=== PATIENT | male | born 1960 | race Caucasian/White ===

== ENCOUNTER 2021-02-18 09:56 | Outpatient (REF) | payer OTHER, SELFPAY ==
[2021-02-18 10:43] LABS: MANUAL DIFF FLAG NO
[2021-02-18 10:52] LABS: Basophils Absolute Auto 0.1 X10*3/uL (0.0-0.2); Basophils Percent Auto 0.9 % (0-2); Eosinophils Absolute Auto 0.1 X10*3/uL (0.0-0.4); Eosinophils Percent Auto 2.5 % (0-4); Hematocrit 43.5 % (42-52); Hemoglobin 14.6 g/dl (14.0-18.0); Imm Gran Abs Auto 0.01 X10*3/uL (0.00-0.03); Imm Gran Pct Auto 0.2 % (0.0-0.4); Lymphocytes Absolute Auto 1.2 X10*3/uL (1.2-4.9); Lymphocytes Percent Auto 21.3 % (20-40); Mean Corpuscular HGB Conc 33.6 g/dl (31.0-36.0); Mean Corpuscular Hemoglobin 31.1 pg (27.0-33.0); Mean Corpuscular Volume 92.8 fL (80-98); Mean Platelet Volume 10.7 fL (9.4-12.4); Monocytes Absolute Auto 0.4 X10*3/uL (0.1-1.2); Monocytes Percent Auto 7.5 % (2-11); Neutrophils Absolute Auto 3.7 X10*3/uL (2.0-8.3); Neutrophils Percent Auto 67.6 % (45-73); Platelet Count 149 X10*3/uL (160-400); Red Blood Count 4.69 X10*6/uL (4.60-5.80); Red Cell Distribution Width 11.8 % (11.0-16.0); White Blood Count 5.5 X10*3/uL (4.8-10.8)
[2021-02-18 11:09] LABS: Alanine Aminotransferase 8 U/L (0-40); Albumin Level 4.2 g/dL (3.5-5.0); Alkaline Phosphatase 89 U/L (39-117); Anion Gap 13 (12-20); Aspartate Amino Transferase 13 U/L (5-37); Bilirubin Total 1.1 mg/dL (0.0-1.0); Blood Urea Nitrogen 13 mg/dL (9-16); Calcium 9.2 mg/dL (8.4-10.2); Carbon Dioxide 26 mmol/L (22-29); Chloride 107 mmol/L (96-108); Cholesterol 133 mg/dL; Estimated Glomerular Filt Rate > 60; Glucose Random 94 mg/dL (60-115); HDL Cholesterol 53 mg/dL; LDL Cholesterol Calculated 69 mg/dl; Potassium 4.7 mmol/L (3.3-5.1); Sodium 141 mmol/L (135-145); Total Protein 6.4 g/dL (6.5-8.0); Triglycerides 59 mg/dL
[2021-02-18 11:32] LABS: Prostate Specific Antigen 0.49 ng/mL (<0.05-4.0)
[2021-02-18 11:55] LABS: Glucose Urine UA NEG (NEG); Leukocyte Esterase Urine NEG (NEG); Nitrite Urine NEG (NEG); PH 6.5 (5.0-8.0); Specific Gravity - Urine 1.015 (1.005-1.025); Urine Blood NEG (NEG); Urine Ketones NEG (NEG); Urine Protein NEG (NEG-TRACE)
[2021-02-18 11:57] LABS: Appearance Urine CLEAR; Color Urine YELLOW
== END 2021-02-18 09:57 | disposition home or self-care (01) ==
LOC: HO.LAB 09:56
PROVIDERS: PCP Internal Medicine; Visit Provider Internal Medicine
DX: Z12.5 Encounter for screening for malignant neoplasm of prostate (principal); I25.10 Atherosclerotic heart disease of native coronary artery without angina pectoris; E78.00 Pure hypercholesterolemia, unspecified; N18.9 Chronic kidney disease, unspecified
CPT/HCPCS: 36415; 80053; 80061; 81003; 84153; 85025

== ENCOUNTER 2022-04-16 09:53 | Outpatient (REF) | payer OTHER, SELFPAY ==
[2022-04-16 10:16] LABS: MANUAL DIFF FLAG NO
[2022-04-16 10:46] LABS: Basophils Absolute Auto 0.1 X10*3/uL (0.0-0.2); Basophils Percent Auto 0.9 % (0-2); Eosinophils Absolute Auto 0.3 X10*3/uL (0.0-0.4); Eosinophils Percent Auto 4.6 % (0-4); Hematocrit 44.5 % (42.0-52.0); Hemoglobin 15.2 g/dl (14.0-18.0); Imm Gran Abs Auto 0.02 X10*3/uL (0.00-0.03); Imm Gran Pct Auto 0.3 % (0.0-0.4); Lymphocytes Absolute Auto 1.2 X10*3/uL (1.2-4.9); Lymphocytes Percent Auto 18.2 % (20-40); Mean Corpuscular HGB Conc 34.2 g/dl (31.0-36.0); Mean Corpuscular Hemoglobin 30.8 pg (27.0-33.0); Mean Corpuscular Volume 90.3 fL (80.0-98.0); Mean Platelet Volume 10.3 fL (9.4-12.4); Monocytes Absolute Auto 0.5 X10*3/uL (0.1-1.2); Neutrophils Absolute Auto 4.5 x10*3/uL (2.0-8.3); Platelet Count 163 X10*3/uL (160-400); Red Blood Count 4.93 X10*6/uL (4.60-5.80); Red Cell Distribution Width 11.9 % (11.0-16.0); White Blood Count 6.5 X10*3/uL (4.8-10.8)
[2022-04-16 11:22] LABS: Alanine Aminotransferase 11 U/L (0-40); Albumin Level 4.3 g/dL (3.5-5.0); Alkaline Phosphatase 86 U/L (39-117); Anion Gap 14 (12-20); Aspartate Amino Transferase 13 U/L (5-37); Bilirubin Total 1.2 mg/dL (0.0-1.0); Blood Urea Nitrogen 12 mg/dL (9-16); Calcium 9.3 mg/dL (8.4-10.2); Carbon Dioxide 25 mmol/L (22-29); Chloride 104 mmol/L (96-108); Cholesterol 139 mg/dL; Estimated Glomerular Filt Rate 58; Glucose Fasting 96 mg/dL (60-99); HDL Cholesterol 54 mg/dL; LDL Cholesterol Calculated 73 mg/dl; Potassium 4.1 mmol/L (3.3-5.1); Sodium 139 mmol/L (135-145); Total Protein 6.6 g/dL (6.5-8.0); Triglycerides 63 mg/dL
[2022-04-16 11:32] LABS: Prostate Specific Antigen Scr 0.48 ng/mL (<0.05-4.0)
== END 2022-04-16 09:54 | disposition home or self-care (01) ==
LOC: HO.LAB 09:53
PROVIDERS: PCP Internal Medicine; Visit Provider Internal Medicine
DX: Z12.5 Encounter for screening for malignant neoplasm of prostate (principal); I25.10 Atherosclerotic heart disease of native coronary artery without angina pectoris; I12.9 Hypertensive chronic kidney disease with stage 1 through stage 4 chronic kidney disease, or unspecified chronic kidney disease; N18.9 Chronic kidney disease, unspecified
CPT/HCPCS: 36415; 80053; 80061; 84153; 85025

== ENCOUNTER 2022-07-24 15:59 | Outpatient (REF) | payer OTHER, SELFPAY ==
[2022-07-24 16:48] LABS: Anion Gap 12 (12-20); Blood Urea Nitrogen 13 mg/dL (9-16); Calcium 9.3 mg/dL (8.4-10.2); Carbon Dioxide 28 mmol/L (22-29); Chloride 106 mmol/L (96-108); Estimated Glomerular Filt Rate > 60; Glucose Random 91 mg/dL (60-115); Potassium 4.3 mmol/L (3.3-5.1); Sodium 142 mmol/L (135-145)
== END 2022-07-24 16:00 | disposition home or self-care (01) ==
LOC: HO.LAB 15:59
PROVIDERS: Visit Provider Internal Medicine
DX: I12.9 Hypertensive chronic kidney disease with stage 1 through stage 4 chronic kidney disease, or unspecified chronic kidney disease (principal); N18.9 Chronic kidney disease, unspecified; I25.10 Atherosclerotic heart disease of native coronary artery without angina pectoris
CPT/HCPCS: 36415; 80048

== ENCOUNTER 2023-02-19 06:50 | Outpatient (REF) | payer OTHER, SELFPAY ==
[2023-02-19 07:00] LABS: MANUAL DIFF FLAG NO
[2023-02-19 07:09] LABS: Basophils Absolute Auto 0.1 X10*3/uL (0.0-0.2); Basophils Percent Auto 0.8 % (0-2); Eosinophils Absolute Auto 0.2 X10*3/uL (0.0-0.4); Eosinophils Percent Auto 3.1 % (0-4); Hematocrit 46.6 % (42.0-52.0); Hemoglobin 15.9 g/dl (14.0-18.0); Imm Gran Abs Auto 0.02 X10*3/uL (0.00-0.03); Imm Gran Pct Auto 0.3 % (0.0-0.4); Lymphocytes Absolute Auto 1.7 X10*3/uL (1.2-4.9); Lymphocytes Percent Auto 22.5 % (20-40); Mean Corpuscular HGB Conc 34.1 g/dl (31.0-36.0); Mean Corpuscular Hemoglobin 31.3 pg (27.0-33.0); Mean Corpuscular Volume 91.7 fL (80.0-98.0); Monocytes Absolute Auto 0.5 X10*3/uL (0.1-1.2); Monocytes Percent Auto 7.3 % (2-11); Neutrophils Absolute Auto 4.9 x10*3/uL (2.0-8.3); Platelet Count 171 X10*3/uL (160-400); Red Blood Count 5.08 X10*6/uL (4.60-5.80); Red Cell Distribution Width 11.9 % (11.0-16.0); White Blood Count 7.4 X10*3/uL (4.8-10.8)
[2023-02-19 08:10] LABS: Appearance Urine Clear; Color Urine Yellow; Glucose Urine UA Negative (Negative); Leukocyte Esterase Urine Negative (Negative); Nitrite Urine Negative (Negative); PH 5.5 (5.0-9.0); UMIC TRIGGER UA YES; Urine Blood Negative (Negative); Urine Ketones 15 mg/dL (Negative); Urine Protein 30 (1+) mg/dL (Neg-Trace)
[2023-02-19 08:17] LABS: Bacteria Urine None Seen (None Seen); RBC Urine 0-2 /HPF (0-2); Squamous Epithelial Cell Urine 0-2 /HPF (0-2); WBC Urine 0-5 /HPF (0-5)
[2023-02-19 11:19] LABS: Alanine Aminotransferase 12 U/L (0-40); Albumin Level 4.3 g/dL (3.5-5.0); Alkaline Phosphatase 96 U/L (39-117); Anion Gap 14 (12-20); Aspartate Amino Transferase 14 U/L (5-37); Bilirubin Total 1.7 mg/dL (0.0-1.0); Blood Urea Nitrogen 11 mg/dL (9-16); Calcium 9.6 mg/dL (8.4-10.2); Carbon Dioxide 26 mmol/L (22-29); Chloride 107 mmol/L (96-108); Cholesterol 136 mg/dL; Estimated Glomerular Filt Rate > 60; Glucose Fasting 103 mg/dL (60-99); HDL Cholesterol 52 mg/dL; LDL Cholesterol Calculated 72 mg/dl; Potassium 4.4 mmol/L (3.3-5.1); Sodium 143 mmol/L (135-145); Triglycerides 62 mg/dL
[2023-02-19 11:29] LABS: Prostate Specific Antigen 0.67 ng/mL (<0.05-4.0)
== END 2023-02-19 06:51 | disposition home or self-care (01) ==
LOC: HO.LAB 06:50
PROVIDERS: Visit Provider Internal Medicine
DX: Z00.00 Encounter for general adult medical examination without abnormal findings (principal)
CPT/HCPCS: 36415; 80053; 80061; 81001; 84153; 85025

== ENCOUNTER 2023-12-30 14:05 | Outpatient (REF) | payer OTHER, SELFPAY ==
[2023-12-30 14:19] LABS: MANUAL DIFF FLAG NO
[2023-12-30 15:17] LABS: Basophils Absolute Auto 0.1 X10*3/uL (0.0-0.2); Basophils Percent Auto 0.8 % (0-2); Eosinophils Absolute Auto 0.1 X10*3/uL (0.0-0.4); Hemoglobin 15.5 g/dl (14.0-18.0); Imm Gran Abs Auto 0.01 X10*3/uL (0.00-0.03); Imm Gran Pct Auto 0.2 % (0.0-0.4); Lymphocytes Absolute Auto 1.2 X10*3/uL (1.2-4.9); Lymphocytes Percent Auto 20.1 % (20-40); Mean Corpuscular HGB Conc 34.4 g/dl (31.0-36.0); Mean Corpuscular Hemoglobin 31.1 pg (27.0-33.0); Mean Corpuscular Volume 90.4 fL (80.0-98.0); Mean Platelet Volume 11.3 fL (9.4-12.4); Monocytes Absolute Auto 0.5 X10*3/uL (0.1-1.2); Monocytes Percent Auto 8.7 % (2-11); Neutrophils Absolute Auto 4.2 x10*3/uL (2.0-8.3); Neutrophils Percent Auto 69.2 % (45-73); Platelet Count 171 X10*3/uL (160-400); Red Blood Count 4.98 X10*6/uL (4.60-5.80); Red Cell Distribution Width 12.2 % (11.0-16.0); White Blood Count 6.1 X10*3/uL (4.8-10.8)
[2023-12-30 17:17] LABS: Alanine Aminotransferase 18 U/L (0-40); Albumin Level 4.3 g/dL (3.5-5.0); Alkaline Phosphatase 75 U/L (39-117); Anion Gap 11 (12-20); Aspartate Amino Transferase 14 U/L (5-37); Bilirubin Total 1.2 mg/dL (0.0-1.0); Blood Urea Nitrogen 15 mg/dL (9-16); Carbon Dioxide 27 mmol/L (22-29); Chloride 106 mmol/L (96-108); Cholesterol 133 mg/dL (<200); Estimated Glomerular Filt Rate 44; Glucose Random 94 mg/dL (60-115); Sodium 140 mmol/L (135-145); Total Protein 6.9 g/dL (6.5-8.0)
[2023-12-30 17:18] LABS: Thyroid Stimulating Hormone 0.73 uIU/mL (0.32-4.0)
== END 2023-12-30 14:06 | disposition home or self-care (01) ==
LOC: HO.LAB 14:05
PROVIDERS: PCP Internal Medicine; Visit Provider Internal Medicine
DX: I48.91 Unspecified atrial fibrillation (principal); I25.10 Atherosclerotic heart disease of native coronary artery without angina pectoris; I10 Essential (primary) hypertension; E78.00 Pure hypercholesterolemia, unspecified
CPT/HCPCS: 36415; 80053; 82465; 84439; 84443; 85025

== ENCOUNTER 2024-01-21 12:37 | Outpatient (AMB) | payer OTHER, SELFPAY ==
--- NOTE | 2024-01-21 12:45 | A.OFFVIS_ITS ---
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 He states that he is seen Dr. Javed in the past but not recently. He had atrial fibrillation detected by his own PCP in the last few weeks. Otherwise, has a history of coronary artery disease. According to a note brought by him, underwent PCI to mid LAD as well as diagonal in 2014, at [place], [place]. Apparently, patient was doing some housework and then had chest pain leading to diagnosis of what appears to be STEMI followed by PCI. Otherwise, he is describing some cough but no clear-cut anginal-type symptoms. Some palpitations when he is lying down flat. [facility] Medical History (Updated 01/21/24 @ 13:07 by Orion Galvez MD) Essential hypertension Atherosclerotic cardiovascular disease Surgical History (Updated 01/21/24 @ 12:53 by Belgica Wade CMA) Stented coronary artery Family History (Updated 01/21/24 @ 13:10 by Orion Galvez MD) Mother CHF (congestive heart failure) Social History (Updated 01/21/24 @ 12:55 by Belgica Wade CMA) Household Members: None Alcohol intake: never Patient Tobacco Use Status: Never used Tobacco Review of Systems Const Denies chills, Denies fever(s), Denies frequent falls, Denies weakness, Denies weight gain and Denies weight loss ENT Denies dizziness Card Denies chest pain, Denies leg edema, Denies lightheadedness, Denies palpitations, Denies dyspnea, Denies dyspnea on exertion and Denies orthopnea Resp Denies cough, Denies dyspnea and Denies dyspnea on exertion GI Denies bloating and Denies change in bowel habits Musc Denies muscle weakness, Denies numbness and Denies tingling Neuro Denies dizziness, Denies frequent falls, Denies numbness, Denies tingling and D enies weakness Endo Denies palpitations Physical Exam Vital Signs: Last Vital Signs Pulse 106 H 01/21/24 12:47 BP 160/90 H 01/21/24 12:47 BMI result Body Mass Index 22.4 Const General: comfortable and no acute distress Orientation/consciousness: patient oriented x3 HEENT Other: Unremarkable Head: Yes normal to inspection Neck Neck: Yes normal visual inspection Chest Chest palpation & inspection: normal inspection of the chest Resp Auscultation: clear to auscultation bilaterally Cardio Palpation: normal PMI Heart sounds: S1 normal heart sound present, S2 normal heart sound present, no gallops, no murmurs and no rubs GI Palpation (GI): Soft to palpation Back/Spine/Pelvis Other: unremarkable Skin General skin exam: no rashes or lesions noted Neuro General: patient oriented x3 Extrem General: Yes normal to inspection Psych Mental Status: mental status grossly normal Office Procedures EKG Details: EKG with atrial fibrillation at a rate of 106/Min; possible LVH. [id number], Complete Assessment & Plan Assessment & Plan (1) New onset atrial fibrillation: Code(s): I48.91 - Unspecified atrial fibrillation Category: Medical Plan: We discussed about going up on the Coreg dose but he is very reluctant. His heart rate is slightly high. Probably can convince him in the next visit. Obtain echocardiogram/Holter. May need cardioversion but I am not clear how amenable he will be. Continue Eliquis. (2) Atherosclerotic cardiovascular disease: Code(s): I25.10 - Atherosclerotic heart disease of [place] coronary artery without angina pectoris Category: Medical Plan: History of acute [place]/PCI as described above-stents to mid LAD and diagonal 2014. Clinically, no angina. Continue statins. Continue beta-blockers. Echocardiogram as above. (3) Essential hypertension: Code(s): I10 - Essential (primary) hypertension Category: Medical Plan: Blood pressure seems high but he states he is taken meds as yet. Home blood pressure diary also reviewed and that shows high readings. Advised going up on the blood pressure medications but he states that will make him too tired and that he cannot function normally. Will need to reassess in due course. Orders: Orders CA echo transthoracic complete Today I25.10 - Atherosclerotic heart disease of [place] coronary artery without angina pectoris, I48.91 - Unspecified atrial fibrillation ECG 3 day holter monitor Today I48.91 - Unspecified atrial fibrillation, R00.2 - Palpitations Coding Level of Care Code New Pt Level 4 (79439) Diagnoses New onset atrial fibrillation I48.91 Atherosclerotic cardiovascular disease I25.10 Essential hypertension I10 CPT Codes EKG - CPT: 77212-[id number], Complete ([id number])
[2024-01-21 12:47] VITALS: BP 160/90; PULSE 106; BMI 22.4
== END 2024-01-21 13:25 | disposition home or self-care (01) ==
PROVIDERS: PCP Internal Medicine; Visit Provider Internal Medicine
DX: I48.91 Unspecified atrial fibrillation (principal); I25.10 Atherosclerotic heart disease of native coronary artery without angina pectoris; I10 Essential (primary) hypertension
CPT/HCPCS: 93010; 99204

== ENCOUNTER → 2024-01-21 12:37 | Outpatient (BNVA) | payer OTHER, SELFPAY | PROVIDERS: PCP Internal Medicine; Visit Provider Internal Medicine | DX: I48.91 Unspecified atrial fibrillation (principal); I25.10 Atherosclerotic heart disease of native coronary artery without angina pectoris; I10 Essential (primary) hypertension; I44.5 Left posterior fascicular block; R94.31 Abnormal electrocardiogram [ECG] [EKG] | CPT/HCPCS: 93005; 99202 ==

== ENCOUNTER → 2024-02-12 12:45 | Outpatient (REF) | payer OTHER, SELFPAY ==
--- NOTE | 2024-02-12 12:50 | HM_ITS ---
Conclusion: 1. Patient was monitored for total period of 3 days 2. Baseline was atrial fibrillation with average heart of 94 beats per minute with borderline rate control 3. No significant pauses noted 4. Occasional PVCs noted 5. Patient reported 3 events of palpitations correlated with underlying atrial fibrillation MTDD
--- NOTE | 2024-02-12 12:50 | CA_ITS ---
Transthoracic Echocardiogram Patient (Last, First, Middle): Jose You K Gender: Male Date of : 1960 Age: 63 Procedure Date: 02/12/2024 Procedure Type: Transthoracic Echocardiogram Location: OP Height: 180.34 cm Weight: 70.31 kg BSA: 1.89 m2 Heart Rate: bpm BP: 148 / 100 mmHg Color Print Inspector: TO Referring MD: Orion Galvez MD Channeling Machine Operator: Rory Gustafson MD Symptoms: I25.10 - Atherosclerotic heart disease of [place] coronary artery without... Study Quality: Adequate ECG Rhythm: Atrial Fibrillation Conclusions: - 1. Moderately reduced LV ejection fraction of 35-40% 2. Mild biatrial enlargement 3. Mild aortic and mitral regurgitation 4. No gross pericardial effusion Findings Left Ventricle Normal left ventricular cavity size. There is mildly increased left ventricular wall thickness. The left ventricular systolic function is moderately decreased. The visually estimated ejection fraction is between 35 40%. There is moderate global hypokinesis. Diastolic function is indeterminate on the basis of available data. Right Ventricle Normal right ventricular cavity size. There is borderline right ventricular systolic function. Atria Mild biatrial enlargement. There is no evidence of interatrial shunt. Aortic Valve Normal aortic valve structure and function. There is no aortic valve stenosis. There is mild aortic valve regurgitation. Mitral Valve Normal mitral valve structure and function. There is mild mitral valve regurgitation. There is no mitral valve stenosis. Pulmonic Valve The pulmonic valve is likely normal. Tricuspid Valve Normal tricuspid valve structure. Tricuspid regurgitation envelope is inadequate for calculation of right ventricular systolic pressure. Normal right atrial pressure. Great Vessels All visible segments of the aorta are normal in size. The pulmonary artery was not well visualized. There is no dilatation of the ascending aorta measuring 3.20 cm. Venous The inferior vena cava is normal in size and collapses greater than 50% with inspiration. Pericardium/Pleural There is no evidence of pericardial effusion. Prior Study Comparison no previous study in the last 5 years for comparison Measurements 2D Linear Measurements IVSd: 1.12 0.6-0.9/0.6-1.0 cm LVIDd: 5.00 3.9-5.3/4.2-5.9 cm LVIDd Index: 2.65 2.4-3.2/2.2-3.1 cm/m2 LVIDs: 3.98 2.0-3.6 cm LVPWd: 1.19 0.7-1.1 cm LA Diam: 3.50 2.7-3.8/3.0-4.0 cm LAIDs Index: 1.85 1.5-2.3 cm/m2 LV Mass: 276.24 67-162/88-224 g LV Mass Index: 146.16 43-95/49-115 g/m2 LVOT Diam: 2.20 3.0+(-)1.3 cm 2D Systolic Function EF 4C: 40.30 >55% EF 2C: 40.60 >55% EF BiP: 40.00 >55% Mitral Valve MV Pk E: 0.63 MV Decel Time: 196.00 E'Lateral: 8.01 E'Medial: 8.09 E/E' Med: 7.80 E/E' Lat: 7.90 PHT: 58.00 MVA PHT: 3.79 Decel Peach: 3.24 Aortic Valve AoV Pk Slava: 0.85 AoV Pk Grad: 3.00 LVOT LVOT Pk Slava: 0.78 LVOT Mn Slava: 0.50 LVOT VTI: 0.13 LVOT Pk Grad: 2.00 LVOT Mn Grad: 1.00 LVOT Diam: 2.20 LVOT Area: 3.80 Diastolic Function MV Pk E: 0.63 E'Medial: 8.09 E/E' Med: 7.80 E' Laterial: 8.01 E/E' Lat: 7.90 Right Ventricle TAPSE (mm): 16.30 TVS' Slava: 10.10 Tricuspid Valve RA Press: 3.00 Great Vessels Aorta Sinus of Valsalva: 3.35 2.0-3.[address] [place]: 2.53 1.7-3.4 cm Ao Asc: 3.20 2.1-3.4 cm Updated in Other Vendor System with Status of Final Rory Gustafson MD electronically signed on 02/14/2024 1:04:28 PM with status of Final
== END ==
LOC: HO.CARD 12:45
PROVIDERS: PCP Internal Medicine; Visit Provider Internal Medicine
DX: I48.91 Unspecified atrial fibrillation (principal); R00.2 Palpitations; I25.10 Atherosclerotic heart disease of native coronary artery without angina pectoris
CPT/HCPCS: 93242; 93306

== ENCOUNTER → 2024-02-12 12:50 | Outpatient (BNV) | payer OTHER, SELFPAY | PROVIDERS: PCP Internal Medicine; Visit Provider Internal Medicine Cardiovascular Disease | DX: I48.91 Unspecified atrial fibrillation (principal) | CPT/HCPCS: 93244; 93306 ==

== ENCOUNTER 2024-02-22 12:48 | Outpatient (AMB) | payer OTHER, SELFPAY ==
[2024-02-22 13:05] VITALS: BP 130/68; PULSE 74; BMI 21.5
--- NOTE | 2024-02-22 13:05 | A.OFFVIS_ITS ---
Vital Signs 02/22/24 13:05 Height 5 ft 11 in Weight 154 lb 5.177 oz BMI 21.5 BP 130/68 Blood Pressure Location Lt brachial Position Sitting Pulse 74 Pulse Source Pulse Oximeter Intake Visit Reasons: 6 wk fu after echo/holter Allergies No Known Allergies Allergy (Verified 01/21/24 12:48) Medication List - Last Reconciled 02/22/24 by Orion Galvez MD apixaban (Eliquis) 5 mg PO BID atorvastatin 40 mg PO DAILY carvedilol 12.5 mg PO BID irbesartan 300 mg PO DAILY HPI Comments Details: Jose returns for follow-up. Recently seen in consultation regarding atrial fibrillation. He has seen Dr. Javed in the past but not recently. He had atrial fibrillation detected by his own PCP in the last few weeks. Otherwise, has a history of coronary artery disease. According to a note brought by him, underwent PCI to mid LAD as well as diagonal in 2014, at [place], [place]. Apparently, patient was doing some housework and then had chest pain leading to diagnosis of what appears to be STEMI followed by PCI. Otherwise, he is describing some cough but no clear-cut anginal-type symptoms. Some palpitations when he is lying down flat. Since last visit, he has undergone an echocardiogram as well as a Holter monitor. [facility] Medical History (Updated 02/22/24 @ 13:37 by Orion Galvez MD) Essential hypertension Atherosclerotic cardiovascular disease Surgical History (Updated 01/21/24 @ 12:53 by Belgica Wade CMA) Stented coronary artery Family History (Updated 01/21/24 @ 13:10 by Orion Galvez MD) Mother CHF (congestive heart failure) Social History (Updated 01/21/24 @ 12:55 by Belgica Wade CMA) Household Members: None Alcohol intake: never Patient Tobacco Use Status: Never used Tobacco Review of Systems Const Denies weakness ENT Denies dizziness Card Denies chest pain, Denies chest pain with activity, Denies syncope, Denies rapid heart rate, Denies pedal edema, Denies edema, Denies leg edema, Denies lightheadedness, Denies palpitations, Denies dyspnea, Denies dyspnea on exertion and Denies orthopnea Resp Denies cough, Denies dyspnea and Denies dyspnea on exertion GI Denies hematochezia and Denies change in stool character Musc Denies abnormal gait, Denies muscle cramps, Denies muscle weakness, Denies numbness, Denies radiating pain into limb and Denies tingling Neuro Denies abnormal gait, Denies dizziness, Denies syncope, Denies numbness, Denies tingling and Denies weakness Endo Denies palpitations Physical Exam Vital Signs: Last Vital Signs Pulse 74 02/22/24 13:05 BP 130/68 02/22/24 13:05 BMI result Body Mass Index 21.5 Const General: comfortable and no acute distress Orientation/consciousness: patient oriented x3 HEENT Other: Unremarkable Head: Yes normal to inspection Neck Neck: Yes normal visual inspection Chest Chest palpation & inspection: normal inspection of the chest Resp Auscultation: clear to auscultation bilaterally Cardio Palpation: normal PMI Heart sounds: S1 normal heart sound present, S2 normal heart sound present, no gallops, no murmurs and no rubs GI Palpation (GI): Soft to palpation Back/Spine/Pelvis Other: unremarkable Skin General skin exam: no rashes or lesions noted Neuro General: patient oriented x3 Extrem General: Yes normal to inspection Psych Mental Status: mental status grossly normal Assessment & Plan Assessment & Plan (1) New onset atrial fibrillation: Code(s): I48.91 - Unspecified atrial fibrillation Category: Medical Plan: During the recent clinic visit, EKG showed atrial fibrillation at a rate of 106/Min. In the Holter as well, ventricular rates slightly high but he states he did not take Coreg during the time of Holter. We discussed increasing Coreg dosing but he prefers no changes. Also discussed about cardioversion as the next step but he does not want that either. He states he does not like to go under anesthesia for cardioversion, but explained to him that we cannot do the procedure while he is awake. He states he would like to go for a 2nd opinion arranged through his own PCP. He would like to discuss with his PCP about that. Otherwise, remain on Eliquis. (2) Atherosclerotic cardiovascular disease: Code(s): I25.10 - Atherosclerotic heart disease of [place] coronary artery without angina pectoris Category: Medical Plan: History of acute CT/PCI as described above-stents to mid LAD and diagonal 2015. Clinically, no angina. Continue beta-blockers and statins. (3) Essential hypertension: Code(s): I10 - Essential (primary) hypertension Category: Medical Plan: During last visit, blood pressure was 160/90 mm Hg. Today, it seems better. Home blood pressure diary that had shown high readings. We discussed about going up on blood pressure meds but again he did not want to do that as he felt that could make him too tired. (4) Cardiomyopathy: Code(s): I42.9 - Cardiomyopathy, unspecified Category: Medical Plan: Echocardiogram with cardiomyopathy, LVEF of 35-40%. Could be related to underlying hypertension and atrial fibrillation. However, he is not really agreeable to management suggested as above for either condition. He would like to just seek a 2nd opinion through his own PCP. Plan Patient will contact us after discussing with his PCP regarding 2nd opinion. Coding Level of Care Code Est Pt Level 4 (21308) Diagnoses New onset atrial fibrillation I48.91 Atherosclerotic cardiovascular disease I25.10 Essential hypertension I10 Cardiomyopathy I42.9
== END 2024-02-22 14:28 | disposition home or self-care (01) ==
PROVIDERS: PCP Internal Medicine; Visit Provider Internal Medicine
DX: I48.91 Unspecified atrial fibrillation (principal); I25.10 Atherosclerotic heart disease of native coronary artery without angina pectoris; I10 Essential (primary) hypertension; I42.9 Cardiomyopathy, unspecified
CPT/HCPCS: 99214

== ENCOUNTER → 2024-02-22 12:48 | Outpatient (BNVA) | payer OTHER, SELFPAY | PROVIDERS: PCP Internal Medicine; Visit Provider Internal Medicine | DX: I48.91 Unspecified atrial fibrillation (principal); I25.10 Atherosclerotic heart disease of native coronary artery without angina pectoris; I42.9 Cardiomyopathy, unspecified; I10 Essential (primary) hypertension | CPT/HCPCS: 99212 ==

== ENCOUNTER 2025-01-11 15:04 | Outpatient (AMB) | payer OTHER, SELFPAY ==
--- NOTE | 2025-01-11 14:53 | MHC.PC.OV ---
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 Accompanied by: Self / Same As Patient Allergies No Known Allergies Allergy (Verified 01/11/25 14:54) Tobacco use date assessed: 01/11/25 Fall risk assessment: No Falls in past year Last assessed Fall Risk: 01/11/25 Dental Screening Dental Screen Date: 01/11/25 Did you have a dental visit in the last 12 months?: Yes Did you have a dental problem in the last 6 months where you did not have access to dental care?: No PFSH Medical History Essential hypertension Atherosclerotic cardiovascular disease Surgical History Stented coronary artery Family History (Updated 01/11/25 @ 15:20 by Mari Sanches MA) Mother CHF (congestive heart failure) Father No problems noted. Social History Household Members: None Housing: House Alcohol intake: never Patient Tobacco Use Status: Never used Tobacco e-Cigarette/Vaping Use: Never Used service: No Current occupational status: retired Cognitive needs: No Hearing needs: No Vision needs: No Questionnaire PHQ-9 Over the last 2 weeks, how often have you been bothered by any of the following problems? 1. Little interest or pleasure in doing things: not at all 2. Feeling down, depressed, or hopeless: not at all 3. Trouble falling or staying asleep, or sleeping too much: not at all 4. Feeling tired or having little energy: not at all 5. Poor appetite or overeating: not at all 6. Feeling bad about yourself - or that you are a failure or have let yourself or your family down: not at all 7. Trouble concentrating on things, such as reading the newspaper or watching television: not at all 8. Moving or speaking so slowly that other people could have noticed. Or the opposite - being so fidgety or restless that you have been moving around a lot more than usual: not at all 9. Thoughts that you would be better off or of hurting yourself in some way: not at all Total score: 0 Source: Developed by Drs. Claudy Ying, Edy Grigsby and colleagues, with an educational jd from [employer]. Thrive Questionnaire Date Thrive assessed: 01/11/25 I am a: Patient Within the past 12 months, did the food you bought not last and you didn't have the money to get more?: Never true Within the past 12 months, did you worry whether your food would run out before you got money to buy more?: Never true Do you have trouble paying for medicines?: No Do you have trouble getting transportation to medical appointments?: No Do you have trouble paying your heating and electricity bill?: No Do you have trouble taking care of your child, family member or friend?: No Do you have trouble with day-to-day activities such as bathing, preparing meals, shopping, managing finances, etc.?: No Are you currently unemployed and looking for a job?: No Are you interested in more education?: No THRIVE Score: 0 AUDIT C Alcohol Use Questionnaire (AUDIT-C) 1. How often do you have a drink containing alcohol?: Never 3. How often do you have six or more drinks on one occasion?: Never Total Score: 0 ZACHARY-7 AMB Questionnaire ZACHARY-7 Date ZACHARY - 7 assessed: 01/11/25 Feeling nervous, anxious, or on edge: 0 = Not at all Not being able to stop or control worryin = Not at all Worrying too much about different things: 0 = Not at all Trouble relaxin = Not at all Being so restless that it is hard to sit still: 0 = Not at all Becoming easily annoyed or irritable: 0 = Not at all Feeling afraid as if something awful might happen: 0 = Not at all Total ZACHARY-7 score (0-4 normal; 5-9 mild; 10-14 moderate; 15-21 severe): 0 Source: Developed by Drs. Claudy Ying, Edy Grigsby and colleagues, with an educational jd from [employer]. Physical exam (Primary Care) Vital Signs: Last Vital Signs Temp 97.1 F 01/11/25 14:54 Pulse 83 01/11/25 14:54 BP 128/80 01/11/25 14:54 Pulse Ox 98 01/11/25 14:54 Oxygen Delivery Method Room Air 01/11/25 14:54 BMI result Body Mass Index 21.6 Tobacco/Smoking Status: Tobacco use Status Tobacco use date assessed 01/11/25 01/11/25 14:55 Patient Tobacco Use Status Never used Tobacco 01/11/25 14:55 e-Cigarette/Vaping Use Never Used 01/11/25 14:55 PHQ-9: PHQ-9 Score PHQ-9: Total score 0 01/11/25 15:21 Thrive Assessment: Date of Thrive Assessment Date Thrive assessed 01/11/25 01/11/25 14:55 Coding Level of Care Code New Pt Level 4 (37316) Complex EM visit Add On G2211 Diagnoses Essential hypertension I10 New onset atrial fibrillation I48.91 Assessment & Plan Assessment & Plan (1) Essential hypertension: Code(s): I10 - Essential (primary) hypertension Category: Medical Plan: BP is in range (2) New onset atrial fibrillation: Code(s): I48.91 - Unspecified atrial fibrillation Category: Medical Plan: Continue present management. Plan History of Present Illness The patient is a 64-year-old male presenting with concerns about heart-related conditions and management of atrial fibrillation. He has a past diagnosis of tachycardia, which he manages with carvedilol, and atrial fibrillation managed with blood thinners for stroke prevention. The patient reports cardiomyopathy with heart function at 35%, as diagnosed in 2023. The patient previously saw a adhesive bonding machine operator who indicated no available medication for atrial fibrillation, prompting the patient to seek a second opinion. A referral to [facility] cardiology was given but not pursued due to distrust and stress from his current life situation. The patient prefers to manage his condition with medication rather than proceeding with cardioversion, due to associated risks and personal circumstances. He expresses contentment with the effect of carvedilol in managing tachycardia. Social History - Employment: Landlord, experiencing stress related to tenant issues. - Functional Status: Reports good general health; engages in physical activities such as shoveling snow and mowing. - Family Status: Limited immediate family support due to geographical distance. - Housing: Resides in [place] with neighbors working at [facility]. Review of Systems - Cardiovascular: Reports tachycardia; managed with carvedilol. - Hematologic: Reports the use of blood thinners for atrial fibrillation management. - Neurologic: Denies issues; concerns about anesthesia due to personal distrust in prior physician recommendations. Physical Exam General: Cooperative and healthy appearing Nutritional Appearance: Well nourished Orientation/consciousness: Patient oriented x3 Limitations: No limitations Head: Normal to inspection General: Appearance normal, both eyes and all related structures Neck: Normal visual inspection Chest: Normal palpation of entire chest wall Respiratory: Breath sounds are clear, no wheezing or crackles noted. ormal respiratory effort Neurology: Patient oriented x3. Results Plan 1. Tachycardia - Continue management with carvedilol. 2. Atrial Fibrillation - Maintain anticoagulation therapy. Consider cardiology consultation. 3. Cardiomyopathy - Monitor heart function; repeat tests if necessary. 4. Hypertensive Heart Disease - Monitor and manage blood pressure. Discussion Notes During our conversation, we discussed the ongoing management of Mr. You's atrial fibrillation primarily through medication. We reviewed his desire to avoid cardioversion and instead continue managing his condition with carvedilol and anticoagulants. I reaffirmed the necessity of continual monitoring to prevent stroke and manage heart rate effectively. Mr. You expressed his concerns regarding previous care experiences and sought a cardiology consultation. We explored options for cardiology follow-up in a setting he is comfortable with, specifically avoiding previous physicians with whom trust was a concern. I supported the plan for him to attend an EKG and blood tests to better understand his current cardiac status and facilitate further evaluation. Patient Instructions - Continue taking carvedilol as directed. - Maintain anticoagulation therapy to reduce stroke risk. - Consider consulting a trusted adhesive bonding machine operator for further evaluation. - Attend scheduled EKG and blood tests as recommended. - Monitor symptoms and seek care for unexpected changes. Orders: Orders Basic Metabolic Panel 01/11/25 I10 - Essential (primary) hypertension, I48.91 - Unspecified atrial fibrillation Liver Panel 01/11/25 I10 - Essential (primary) hypertension, I48.91 - Unspecified atrial fibrillation Thyroid Stimulating Hormone 01/11/25 I10 - Essential (primary) hypertension, I48.91 - Unspecified atrial fibrillation Lipid Panel 01/11/25 I10 - Essential (primary) hypertension, I48.91 - Unspecified atrial fibrillation UA and rflx microscopic 01/11/25 I10 - Essential (primary) hypertension, I48.91 - Unspecified atrial fibrillation Complete Blood Count no Diff 01/11/25 I10 - Essential (primary) hypertension, I48.91 - Unspecified atrial fibrillation ECG 12 lead EKG 01/11/25 I48.91 - Unspecified atrial fibrillation
[2025-01-11 14:54] VITALS: BP 128/80; PULSE 83; TEMP 36.2; O2SAT 98; BMI 21.6
== END 2025-01-11 15:36 | disposition home or self-care (01) ==
LOC: HO.HMCHD 15:04
PROVIDERS: PCP Internal Medicine; Visit Provider Internal Medicine
DX: I10 Essential (primary) hypertension (principal); I48.91 Unspecified atrial fibrillation

== ENCOUNTER → 2025-01-11 15:04 | Outpatient (BNVA) | payer OTHER, SELFPAY | PROVIDERS: PCP Internal Medicine; Visit Provider Internal Medicine | DX: I48.91 Unspecified atrial fibrillation (principal); R00.0 Tachycardia, unspecified; I42.9 Cardiomyopathy, unspecified; I11.9 Hypertensive heart disease without heart failure; Z79.899 Other long term (current) drug therapy | CPT/HCPCS: 99202 ==